=== PATIENT | female | born 1975 | race Caucasian/White ===

== ENCOUNTER 2016-04-13 13:23 | Outpatient (CLI) | payer MEDICAID, OTHER ==
[~2016-04-13] VITALS: Ht 162.6 cm; Wt 63.0 kg
[2016-04-13 13:45] VITALS: BP 108/53
[2016-04-13 14:03] LABS: BILIRUBIN,URINE NEGATIVE (NEGATIVE); KETONES,URINE NEGATIVE (NEGATIVE); LEUKOCYTE ESTERASE ,URINE NEGATIVE (NEGATIVE); NITRITE,URINE NEGATIVE (NEGATIVE); PH,URINE 6 (5-9); PROTEIN,URINE NEGATIVE (NEGATIVE); UROBILINOGEN,URINE NORMAL (NORMAL)
[2016-04-13] MEDS ORDERED: FLU TRIvalent (5 YOA+) 2016-17 (AFLURIA) 0.5 ML IM ONE (14:15)
[2016-04-13] MEDS ORDERED: NITR-65 PO (14:28)
--- NOTE | 2016-04-15 09:11 | Physician Query-Final Dx ---
SHREYAS PARDO 04/15/16 0911: Clinic Account Progress/Dx Physician Query: Please give diagnosis Date of Service Apr 13, 2016 at 13:23 AYAH CRAWFORD MD 04/16/16 0749: Clinic Account Progress/Dx DIAGNOSIS: Diagnosis false labor SHREYAS PARDO Apr 15, 2016 09:11 AYAH CRAWFORD MD Apr 16, 2016 07:49
== END 2016-04-13 14:35 | disposition home or self-care (01) ==
LOC: WSo 13:23 → LDRP 13:23 → WSo 14:35
PROVIDERS: ATTEND Obstetrics & Gynecology
DX: O47.02 False labor before 37 completed weeks of gestation, second trimester (principal); Z3A.20 20 weeks gestation of pregnancy; Z23 Encounter for immunization
CPT/HCPCS: 81000; 87088; 90471; 99214

== ENCOUNTER 2016-08-09 07:23 | Inpatient (IN) | payer BC ==
[~2016-08-09] VITALS: Ht 165.1 cm; Wt 78.5 kg
[2016-08-09] VITALS (44 sets, daily range): BP systolic 88–162; BP diastolic 49–73
[~2016-08-09 07:23] MED LIST: NITR-65 PO
[2016-08-09] MEDS ORDERED: D5 LR IV SOLUTION 1,000 ML IV SCH (07:41)
[2016-08-09] MEDS ORDERED: OXYTOCIN/NORMAL SALINE 500 ML IV SCH ×2 (07:41→07:43)
[2016-08-09] MEDS ORDERED: MEASLES,MUMPS,RUBELLA 1 EA INJ SC ONE (07:45)
[2016-08-09] MEDS ORDERED: BENZOCAINE/MENTHOL (DERMOPLAST) 56 ML CAN TP PRN (07:45)
[2016-08-09] MEDS ORDERED: TETANUS,DIPTH,PERTUSS P/F (BOOSTRIX) 0.5 ML VIAL IM ONE (07:45)
--- NOTE | 2016-08-09 07:48 | History & Physical ---
History and Physical this patient is a 40-year-old white female with an EDC of 6 817:37-1/7 weeks gestation. Been followed closely for progressive polyhydramnios. SARAH on July 09 was 330. Fundal height is markedly elevated her gestational age due to her polyhydramnios. She is having progressive dyspnea secondary to the markedly distended abdomen. She denies rupture membranes or bleeding. She is having periodic pains that she describes as severe. She had a GBS culture after 35 weeks gestation that was negative. Allergies are to codeine which causes vomiting Medications are vitamins Medical social and surgical histories are per the antepartum record HEENT exam is normal Neck is supple no lymphadenopathy no thyromegaly Abdomen is gravid soft nontender nondistended Extremities show no clubbing or cyanosis. There is no Homans sign. There is some pretibial pitting edema that is normal. Pelvic exam is pending Lab work is pending Assessment and plan term intrauterine at 37 seventh weeks gestation with symptomatic polyhydramnios and advanced maternal age. Plan is for admission on this date for Pitocin induction of labor. Anticipation is for vaginal delivery although plans in preparation replace for if needed 37-1/7 weeks gestation with marked polyhydramnios Allergies and Home Medications Allergies Coded Allergies: No Known Drug Allergies (Unverified , 04/13/16) Home Medications Nitrofurantoin Monohyd/M-Cryst 100 Mg Capsule, 1 TAB PO BID for 7 Days Prescribed by: DACIA CABRERA on 04/13/16 1428 AYAH CRAWFORD MD August 09, 2016 7:48 am
[2016-08-09 08:11] LABS: BASOPHILS % (AUTO) 0 % (0-10); EOSINOPHILS # (AUTO) 0.1 10^3/uL (0.0-0.3); EOSINOPHILS % (AUTO) 1 % (0-10); LYMPHOCYTES # (AUTO) 2.3 X 10^3 (1.0-4.0); LYMPHOCYTES % (AUTO) 20 % (12-44); MEAN CORPUSCULAR HEMOGLOBIN 28 PG (25-34); MEAN CORPUSCULAR HGB CONC 33 G/DL (32-36); MEAN CORPUSCULAR VOLUME 85 FL (80-99); MEAN PLATELET VOLUME 9.9 FL (7.4-10.4); MONOCYTES # (AUTO) 1.3 X 10^3 (0.0-1.0); MONOCYTES % (AUTO) 11 % (0-12); NEUTROPHILS % (AUTO) 68 % (42-75); PLATELET COUNT 337 10^3/uL (130-400); RED BLOOD COUNT 3.86 10^6/uL (4.35-5.85); RED CELL DISTRIBUTION WIDTH 13.4 % (10.0-14.5); WHITE BLOOD COUNT 11.7 10^3/uL (4.3-11.0)
[2016-08-09] MEDS ORDERED: LACTATED RINGERS 1,000 ML IV ONE ×2 (10:26→11:35)
[2016-08-09] MEDS ORDERED: SUFENTA 0.6MCG/ML BUPIVA 0.125 100 ML ONE (10:29)
[2016-08-09] MEDS ORDERED: BUPIVACAINE 0.25% 30 ML (SENSORCAINE) VIAL ONE (11:08)
[2016-08-09] MEDS ORDERED: EPIDURAL (SUFENTA 0.6MCG/ML BUPIVA 0.125%) 100 ML BAG EPI SCH (11:45)
[2016-08-09] MEDS ORDERED: ONDANSETRON 4 MG/2 ML (SDV) Z0FRAN IV PRN (11:45)
[2016-08-09] MEDS ORDERED: BUPIVACAINE 0.25% 30 ML (SENSORCAINE) VIAL INJ ONE (11:45)
[2016-08-09] MEDS ORDERED: NALOXONE 0.4 MG/ML 1 ML (NARCAN) VIAL IV PRN (11:45)
[2016-08-09] MEDS ORDERED: LIDOCAINE/EPI 1%-1:200,000 (XYLOCAINE) 30 ML VIAL ONE (16:42)
[2016-08-09] MEDS: KETOROLAC 30 MG/ML VIAL IV SCH ×2 (19:12→23:56)
[2016-08-09] MEDS: oxyCODONE/APAP 10/325MG (PERCOCET 10) TABLET PO PRN (23:45)
[2016-08-09] MEDS: DOCUSATE SODIUM 100 MG (COLACE) CAP PO SCH (23:58)
[2016-08-10] VITALS: BP 97/56
--- NOTE | 2016-08-10 04:27 | OPERATIVE REPORT ---
DATE OF SERVICE: 08/09/2016 DELIVERY NOTE Patient delivered term, spontaneous vaginal delivery a viable female with of 8 and 9 and 1 and 5 minutes respectively. Weight of 5 pounds 11 ounces. TIME: 1637. The infant was delivered over a midline episiotomy performed at the patient's request. She could not push the baby through the perineum. Her epidural had worn off to the point where she was quite markedly uncomfortable. She requested an episiotomy in order to accomplish the delivery expeditiously. Episiotomy was performed, baby delivered promptly with the next push. The infant was bulb suctioned on delivery of the head, again on completion of delivery. The umbilical cord was doubly clamped. Father cut the cord. The baby was passed to mom's abdomen. Cord bloods were obtained including an arterial cord blood for ABG and that is still pending. The placenta delivered spontaneously Mary. It was normal with a 3 vessel cord. The cervix, vagina, rectum, and perineum were examined and found intact except for 2 small perilabial minora skin abrasions, just small lacerations. These were hemostatic and did not require repair. The hymenal ring had torn just a bit and episiotomy was performed at that spot. The entire complex was repaired with a single suture of 3-0 Vicryl repeat in the usual manner without difficulty. Local analgesia was used for the episiotomy repair. Sponge and needle counts were correct and complete on completion of the repair. ESTIMATED BLOOD LOSS: Around 250 mL. The patient tolerated the delivery and the repair well and remained in the LDR for recovery. The baby remained with mom. Job ID: [id number] DocumentID: [id number] Dictated Date: 08/09/2016 16:58:54 Hemotherapist Date: 08/10/2016 04:26:07 Dictated By: AYAH CRAWFORD MD
[2016-08-10] MEDS ORDERED: KETOROLAC 30 MG/ML VIAL ONE (05:59)
[2016-08-10] MEDS: KETOROLAC 30 MG/ML VIAL IV SCH (06:05)
[2016-08-10 06:10] VITALS: BP 88/51
[2016-08-10 06:36] LABS: BASOPHILS % (AUTO) 0 % (0-10); EOSINOPHILS # (AUTO) 0.2 10^3/uL (0.0-0.3); EOSINOPHILS % (AUTO) 1 % (0-10); LYMPHOCYTES # (AUTO) 1.8 X 10^3 (1.0-4.0); LYMPHOCYTES % (AUTO) 13 % (12-44); MEAN CORPUSCULAR HEMOGLOBIN 27 PG (25-34); MEAN CORPUSCULAR HGB CONC 32 G/DL (32-36); MEAN CORPUSCULAR VOLUME 85 FL (80-99); MEAN PLATELET VOLUME 9.2 FL (7.4-10.4); MONOCYTES # (AUTO) 1.4 X 10^3 (0.0-1.0); MONOCYTES % (AUTO) 10 % (0-12); NEUTROPHILS # (AUTO) 10.6 X 10^3 (1.8-7.8); NEUTROPHILS % (AUTO) 76 % (42-75); PLATELET COUNT 267 10^3/uL (130-400); RED BLOOD COUNT 3.23 10^6/uL (4.35-5.85); RED CELL DISTRIBUTION WIDTH 13.2 % (10.0-14.5); WHITE BLOOD COUNT 14.1 10^3/uL (4.3-11.0)
--- NOTE | 2016-08-10 07:55 | Progress Note-Standard ---
Standard Progress Note Progress Notes/Assess & Plan Progress/Assessment & Plan this patient is without complaint. She is ablating, voiding, tolerating by mouth well, has good pain control, is requesting discharge home. She denies chest pain, denies shortness of breath, denies nausea vomiting, and denies headache. Vital Signs Date Time Temp Pulse Resp B/P (MAP) Pulse Ox O2 Delivery O2 Flow Rate FiO2 08/10/16 06:10 98.2 63 20 88/51 98 08/10/16 00:00 99.4 74 20 97/56 96 08/09/16 18:20 98.7 76 20 104/57 08/09/16 18:00 98.8 87 20 114/64 08/09/16 17:45 99.0 75 20 106/66 08/09/16 17:30 99.0 70 20 121/65 08/09/16 17:15 99.2 65 20 112/56 08/09/16 17:00 99.1 86 20 101/49 08/09/16 16:45 99.0 117 20 137/68 97 08/09/16 16:30 98.2 77 20 129/63 97 08/09/16 16:20 98.3 68 18 103/52 97 08/09/16 16:10 72 18 94/54 97 08/09/16 16:00 69 18 105/54 97 08/09/16 15:45 62 18 105/57 96 08/09/16 15:30 76 18 91/54 96 08/09/16 15:15 68 18 97/53 97 08/09/16 15:00 78 18 107/69 97 08/09/16 14:45 75 18 112/67 96 08/09/16 14:30 78 18 108/70 96 08/09/16 14:15 82 18 112/59 97 08/09/16 14:00 91 18 111/57 97 08/09/16 13:45 95 18 108/63 97 08/09/16 13:30 84 18 119/58 99 08/09/16 13:15 80 18 88/53 93 08/09/16 13:00 69 18 108/59 93 08/09/16 12:30 81 20 95/52 99 08/09/16 12:15 80 20 92/50 99 08/09/16 12:00 71 20 108/51 99 08/09/16 11:43 80 18 104/49 98 08/09/16 11:38 83 18 110/60 98 08/09/16 11:33 68 20 113/66 98 08/09/16 11:27 99.0 89 20 112/69 98 08/09/16 11:20 89 20 162/71 08/09/16 11:15 88 20 116/59 08/09/16 11:00 83 20 110/69 08/09/16 10:45 77 20 97/65 08/09/16 10:30 76 20 116/65 08/09/16 10:15 71 20 109/66 08/09/16 10:00 73 20 121/72 08/09/16 09:45 83 20 111/69 08/09/16 09:30 78 20 118/73 08/09/16 09:15 75 20 112/66 08/09/16 09:00 90 20 106/63 08/09/16 08:45 80 20 118/61 08/09/16 08:30 89 20 113/67 I & O 08/10/16 07:00 Intake Total 2500 ml Balance 2500 ml vital signs are stable. Patient is afebrile. Fundus is firm below the umbilicus and nontender. Extreme show no clubbing or cyanosis. There is no Homans sign. There is some pretibial pitting edema that is normal. Assessment and plan day number 1 status post term spontaneous vaginal delivery at 37-1/7 weeks gestation doing well. Plan is for discharge home with follow-up in clinic. If her baby is not released then she will be discharged tomorrow Final Diagnosis 37-1/7 weeks gestation T AYAH PEREA MD August 10, 2016 7:55 am
[2016-08-10] MEDS ORDERED: DOCU100C37 PO (07:58)
[2016-08-10] MEDS ORDERED: OXYC-465 PO (07:58)
[2016-08-10] MEDS ORDERED: IBUP-1780 PO (07:58)
--- NOTE | 2016-08-10 08:00 | Discharge Instructions ---
Discharge Instructions Discharge Medications New, Converted or Re-Newed RX: RX on Chart Patient Instructions Patient Instructions: as directed Return to The Hospital For: as directed Activity & Diet Discharge Diet: No Restrictions Activity as Tolerated: No Orders-Post D/C & Referrals Follow Up Appt: Call to make follow up appt. for patient in 4 weeks. Activity Per routine post vaginal delivery instructions. Diet as tolerated Patient may shower or tub bathe as desired. AYAH CRAWFORD MD August 10, 2016 8:00 am
[2016-08-10 08:15] VITALS: BP 110/56
[2016-08-10] MEDS: oxyCODONE/APAP 10/325MG (PERCOCET 10) TABLET PO PRN ×3 (08:23→21:23)
[2016-08-10] MEDS: DOCUSATE SODIUM 100 MG (COLACE) CAP PO SCH ×2 (08:23→21:23)
[2016-08-10] MEDS: IBUPROFEN 800 MG (MOTRIN) TAB PO SCH ×3 (12:29→23:50)
[2016-08-10 12:30] VITALS: BP 93/56
--- NOTE | 2016-08-10 13:37 | Anesthesia-Regional Post-Op ---
Regional Patient Condition Mental Status: Alert, Oriented x3 Circulation: Same as Pre-Op Headache: Absent Sensation: Full Recovery Motor Block: Absent Post Op Complications Complications Back Soar. Follow Up Care/Instructions Patient Instructions informed patient that having a soar back was normal. Told her if not resolving in 1 week to call the anesthesia department for an evaluation. Anesthesia/Patient Condition Patient is doing well, no complaints other than noted, stable vital signs, no apparent adverse anesthesia problems. No complications reported per nursing. MARSHALL NEWTON NUCLEAR TECHNOLOGIST August 10, 2016 13:36
[2016-08-10] MEDS ORDERED: TETANUS,DIPTH,PERTUSS P/F (BOOSTRIX) 0.5 ML VIAL IM ONE (14:20)
[2016-08-10 18:00] VITALS: BP 98/60
[2016-08-10 20:55] VITALS: BP 103/63
[2016-08-11] MEDS: oxyCODONE/APAP 10/325MG (PERCOCET 10) TABLET PO PRN ×2 (05:10→09:07)
[2016-08-11] MEDS: IBUPROFEN 800 MG (MOTRIN) TAB PO SCH (06:01)
[2016-08-11 06:02] VITALS: BP 105/70
--- NOTE | 2016-08-11 07:17 | Progress Note-Standard ---
Standard Progress Note Progress Notes/Assess & Plan Progress/Assessment & Plan this patient is without complaint. She is ablating, voiding, tolerating by mouth well, has good pain control, is requesting discharge home. She denies chest pain, denies shortness of breath, denies nausea vomiting, and denies headache. Vital Signs Date Time Temp Pulse Resp B/P (MAP) Pulse Ox O2 Delivery O2 Flow Rate FiO2 08/10/16 06:10 98.2 63 20 88/51 98 08/10/16 00:00 99.4 74 20 97/56 96 08/09/16 18:20 98.7 76 20 104/57 08/09/16 18:00 98.8 87 20 114/64 08/09/16 17:45 99.0 75 20 106/66 08/09/16 17:30 99.0 70 20 121/65 08/09/16 17:15 99.2 65 20 112/56 08/09/16 17:00 99.1 86 20 101/49 08/09/16 16:45 99.0 117 20 137/68 97 08/09/16 16:30 98.2 77 20 129/63 97 08/09/16 16:20 98.3 68 18 103/52 97 08/09/16 16:10 72 18 94/54 97 08/09/16 16:00 69 18 105/54 97 08/09/16 15:45 62 18 105/57 96 08/09/16 15:30 76 18 91/54 96 08/09/16 15:15 68 18 97/53 97 08/09/16 15:00 78 18 107/69 97 08/09/16 14:45 75 18 112/67 96 08/09/16 14:30 78 18 108/70 96 08/09/16 14:15 82 18 112/59 97 08/09/16 14:00 91 18 111/57 97 08/09/16 13:45 95 18 108/63 97 08/09/16 13:30 84 18 119/58 99 08/09/16 13:15 80 18 88/53 93 08/09/16 13:00 69 18 108/59 93 08/09/16 12:30 81 20 95/52 99 08/09/16 12:15 80 20 92/50 99 08/09/16 12:00 71 20 108/51 99 08/09/16 11:43 80 18 104/49 98 08/09/16 11:38 83 18 110/60 98 08/09/16 11:33 68 20 113/66 98 08/09/16 11:27 99.0 89 20 112/69 98 08/09/16 11:20 89 20 162/71 08/09/16 11:15 88 20 116/59 08/09/16 11:00 83 20 110/69 08/09/16 10:45 77 20 97/65 08/09/16 10:30 76 20 116/65 08/09/16 10:15 71 20 109/66 08/09/16 10:00 73 20 121/72 08/09/16 09:45 83 20 111/69 08/09/16 09:30 78 20 118/73 08/09/16 09:15 75 20 112/66 08/09/16 09:00 90 20 106/63 08/09/16 08:45 80 20 118/61 08/09/16 08:30 89 20 113/67 I & O 08/10/16 07:00 Intake Total 2500 ml Balance 2500 ml vital signs are stable. Patient is afebrile. Fundus is firm below the umbilicus and nontender. Extreme show no clubbing or cyanosis. There is no Homans sign. There is some pretibial pitting edema that is normal. Assessment and plan day number 1 status post term spontaneous vaginal delivery at 37-1/7 weeks gestation doing well. Plan is for discharge home with follow-up in clinic. If her baby is not released then she will be discharged tomorrow August 11, 2016 Patient is without complaint. She is ambulating, voiding, tolerating fairly well, has good pain control, and is requesting discharge home. Vital Signs Date Time Temp Pulse Resp B/P (MAP) Pulse Ox O2 Delivery O2 Flow Rate FiO2 08/11/16 06:02 98.7 79 20 105/70 08/10/16 20:55 97.7 87 20 103/63 99 08/10/16 18:00 97.8 68 20 98/60 99 08/10/16 12:30 97.8 70 18 93/56 98 08/10/16 08:15 98.3 93 18 110/56 97 vital signs are stable. Patient is afebrile. Fundus is firm below the umbilicus and nontender. Extremities show no clubbing cyanosis. There is no Homans sign. There is some pretibial pitting edema that is normal. Assessment and plan post day 2 status post term spontaneous vaginal delivery at 37 weeks and 1 day doing well. Plan is for discharge home with follow-up in clinic Final Diagnosis 37-1/7 weeks gestation vaginal delivery AAYH CRAWFORD MD August 11, 2016 7:17 am
[2016-08-11 09:00] VITALS: BP 105/67
[2016-08-11] MEDS: DOCUSATE SODIUM 100 MG (COLACE) CAP PO SCH (09:04)
[2016-08-11 12:20] VITALS: BP 105/67
== END 2016-08-11 12:20 | disposition home or self-care (01) | DRG 775 ==
LOC: LDRP 07:23
PROVIDERS: ADMIT Obstetrics & Gynecology; ATTEND Obstetrics & Gynecology
PROC: 0W8NXZZ Division of Female Perineum, External Approach (ICD-10-PCS; principal; 2016-08-09)
PROC: 10E0XZZ Delivery of Products of Conception, External Approach (ICD-10-PCS; 2016-08-09)
PROC: 3E033VJ Introduction of Other Hormone into Peripheral Vein, Percutaneous Approach (ICD-10-PCS; 2016-08-09)
DX: O40.3XX0 Polyhydramnios, third trimester, not applicable or unspecified (principal); O09.523 Supervision of elderly multigravida, third trimester; Z3A.37 37 weeks gestation of pregnancy; Z37.0 Single live birth; Z23 Encounter for immunization
CPT/HCPCS: 36415; 85025; 86850; 86900; 86901; 90715

== ENCOUNTER → 2017-05-23 | Outpatient (CLI) | payer BC ==
[~2017-05-23] MED LIST changes: +DOCU100C37 PO; +IBUP-1780 PO; +OXYC-465 PO
--- NOTE | 2017-05-23 14:57 | Diagnostic Imaging Report ---
INDICATION: Routine screening. COMPARISON: 10/27/2013 and 04/19/2013. TECHNIQUE: Screening digital mammography was performed bilaterally with a Computer Aided Detection (CAD) system. FINDINGS: Both breasts are heterogeneously dense limiting the sensitivity of mammography. There is a biopsy clip in the upper outer aspect of the right breast. No dominant mass or malignant appearing microcalcifications are seen. The axillae are unremarkable. IMPRESSION: No mammographic features suspicious for malignancy are identified. ACR BI-RADS Category 2: Benign findings. Result letter will be mailed to the patient. Note: At least 10% of breast cancer is not imaged by mammography. Dictated by: Dictated on workstation # [id number]
== END ==
LOC: RAD 09:27
PROVIDERS: ATTEND Obstetrics & Gynecology
DX: Z12.31 Encounter for screening mammogram for malignant neoplasm of breast (principal)
CPT/HCPCS: 77067

== ENCOUNTER → 2018-06-19 | Outpatient (CLI) | payer BC ==
--- NOTE | 2018-06-19 21:08 | Diagnostic Imaging Report ---
INDICATION: Routine screening. COMPARISON: Prior mammogram from 05/23/2017 and 04/19/2013. EXAMINATION: 2D and 3D bilateral screening mammography was performed with CAD. The current study was also evaluated with a Computer Aided Detection (CAD) system. FINDINGS: Both breasts show marked parenchymal density, limiting the sensitivity of mammography. There are benign calcifications, bilaterally. Circumscribed nodule in the upper right breast appears stable. No new mass or malignant appearing microcalcifications are seen. The axillae are unremarkable. IMPRESSION: No mammographic features suspicious for malignancy are identified. ACR BI-RADS Category 2: Benign findings. Result letter will be mailed to the patient. Note: At least 10% of breast cancer is not imaged by mammography. Dictated on workstation # [id number]
== END ==
LOC: RAD 11:39
PROVIDERS: ATTEND Obstetrics & Gynecology
DX: Z12.31 Encounter for screening mammogram for malignant neoplasm of breast (principal)
CPT/HCPCS: 77067

== ENCOUNTER 2020-11-17 05:30 | Emergency (ER) | payer BC ==
[~2020-11-17] VITALS: Ht 165.1 cm; Wt 59.0 kg
[~2020-11-17 05:30] MED LIST changes: -OXYC-465 PO; +OXYC-556 PO
[2020-11-17 06:27] LABS: BASOPHILS % (AUTO) 0 % (0-10); EOSINOPHILS % (AUTO) 1 % (0-10); HEMATOCRIT 40 % (35-52); HEMOGLOBIN 12.9 g/dL (11.5-16.0); LYMPHOCYTES # (AUTO) 1.1 10^3/uL (1.0-4.0); LYMPHOCYTES % (AUTO) 30 % (12-44); MEAN CORPUSCULAR HEMOGLOBIN 27 pg (25-34); MEAN CORPUSCULAR HGB CONC 32 g/dL (32-36); MEAN CORPUSCULAR VOLUME 84 fL (80-99); MEAN PLATELET VOLUME 9.3 fL (9.0-12.2); MONOCYTES # (AUTO) 0.4 10^3/uL (0.0-1.0); MONOCYTES % (AUTO) 11 % (0-12); NEUTROPHILS # (AUTO) 2.1 10^3/uL (1.8-7.8); NEUTROPHILS % (AUTO) 58 % (42-75); PLATELET COUNT 254 10^3/uL (130-400); WHITE BLOOD COUNT 3.6 10^3/uL (4.3-11.0)
[2020-11-17 06:33] LABS: ALBUMIN 3.8 GM/DL (3.2-4.5); POTASSIUM 3.2 MMOL/L (3.6-5.0)
[2020-11-17 06:34] LABS: CALCIUM 8.6 MG/DL (8.5-10.1)
[2020-11-17 06:35] LABS: TOTAL PROTEIN 6.7 GM/DL (6.4-8.2)
[2020-11-17 06:37] LABS: BILIRUBIN,TOTAL 0.2 MG/DL (0.1-1.0)
[2020-11-17 06:39] LABS: CREATININE SERUM 0.71 MG/DL (0.60-1.30)
--- NOTE | 2020-11-17 06:42 | ED General ---
General Chief Complaint: General Problems/Pain Stated Complaint: ABD PAIN Nursing Triage Note: PT AMBULATS TO ROOM #5 W/CC INABILITY TO SLEEP THE LAST 2 NIGHTS D/T PAIN TO BILAT RIBS RADIATING TO SHOULDERS. PT REPORTS PAIN DECREASES DURING THE DAY AND IS MADE WORSE WHEN LAYING DOWN AT NIGHT. PT REPORTS DIARRHEA THROUGHOUT THE DAY ON 11/16/20 ACCOMPANIED BY INTERMITTENT NAUSEA. PT REPORTS FEVER THROUGHOUT THE NIGHT FOR THE LAST 2 NIGHTS. PT REPORTS SHE WAS SEEN AT [facility] ON 11/16/20 WHERE SHE WAS DX WITH "GI VIRUS." Source of Information: Patient Exam Limitations: No Limitations History of Present Illness Date Seen by Provider: Nov 17, 2020 Time Seen by Provider: 06:09 Allergies and Home Medications Allergies Coded Allergies: No Known Drug Allergies (Unverified , 04/13/16) Home Medications Docusate Sodium 100 Mg Capsule, 100 MG PO BID Prescribed by: AYAH SALVADOR on 08/10/16 0758 Ibuprofen 800 Mg Tablet, 800 MG PO Q6H Prescribed by: AYAH SALVADOR on 08/10/16 0758 Nitrofurantoin Monohyd/M-Cryst 100 Mg Capsule, 1 TAB PO BID Prescribed by: DACIA CABRERA on 04/13/16 1428 Ondansetron 4 Mg Tab.rapdis, 4 MG SL Q4H PRN for NAUSEA/VOMITING Prescribed by: GUILLERMO MCNAMARA on 11/17/20 0905 Oxycodone HCl/Acetaminophen 1 Each Tablet, 1-2 TAB PO Q4H PRN for PAIN-MODERATE Prescribed by: AYAH SALVADOR on 08/10/16 0758 Tramadol HCl 50 Mg Tablet, 50 MG PO Q6H PRN for PAIN-BREAKTHROUGH Prescribed by: GUILLERMO MCNAMARA on 11/17/20 0906 Past Zidyctd-Nnvwbh-Fbbecy Hx Patient Social History Tobacco Use?: Yes Tobacco type used: Cigarettes Smoking Status: Current Everyday Smoker Substance use?: No Alcohol Use?: No Immunizations Up To Date PED Vaccines UTD: Yes First/Initial COVID19 Vaccinat: NONE Seasonal Allergies Seasonal Allergies: No Past Medical History Surgeries: Yes (LEEP) Respiratory: No Cardiac: No Neurological: No Genitourinary: No Gastrointestinal: No Musculoskeletal: No Endocrine: No HEENT: No Cancer: No Psychosocial: No Integumentary: No Blood Disorders: No Adverse Reaction/Blood Tranf: No Family Medical History Cardiovascular disease 19 FATHER (GRANDFATHER) Parkinson's disease 19 MOTHER (GRANDMOTHER) Physical Exam Vital Signs Vital Signs - First Documented 11/17/20 05:47 Temp 35.8 Pulse 101 Resp 18 B/P (MAP) 119/81 (94) Pulse Ox 98 O2 Delivery Room Air Capillary Refill : Less Than 3 Seconds Height, Weight, BMI Height: 5'5.00" Weight: 173lbs. 0.0oz. [id number]; 21.00 BMI Method: Progress/Results/Core Measures Suspected Sepsis SIRS Temperature: Pulse: 101 Respiratory Rate: 18 Laboratory Tests 11/17/20 05:50: White Blood Count 3.6L Blood Pressure 119 /81 Mean: 94 Laboratory Tests 11/17/20 05:50: Creatinine 0.71, Platelet Count 254, Total Bilirubin 0.2 Results/Orders Lab Results Laboratory Tests Test 11/17/20 05:50 11/17/20 07:20 Range/Units White Blood Count 3.6 L 4.3-11.0 10^3/uL Red Blood Count 4.77 3.80-5.11 10^6/uL Hemoglobin 12.9 11.5-16.0 g/dL Hematocrit 40 35-52 % Mean Corpuscular Volume 84 80-99 fL Mean Corpuscular Hemoglobin 27 25-34 pg Mean Corpuscular Hemoglobin Concent 32 32-36 g/dL Red Cell Distribution Width 15.9 H 10.0-14.5 % Platelet Count 254 130-400 10^3/uL Mean Platelet Volume 9.3 9.0-12.2 fL Immature Granulocyte % (Auto) 0 % Neutrophils (%) (Auto) 58 42-75 % Lymphocytes (%) (Auto) 30 12-44 % Monocytes (%) (Auto) 11 0-12 % Eosinophils (%) (Auto) 1 0-10 % Basophils (%) (Auto) 0 0-10 % Neutrophils # (Auto) 2.1 1.8-7.8 10^3/uL Lymphocytes # (Auto) 1.1 1.0-4.0 10^3/uL Monocytes # (Auto) 0.4 0.0-1.0 10^3/uL Eosinophils # (Auto) 0.0 0.0-0.3 10^3/uL Basophils # (Auto) 0.0 0.0-0.1 10^3/uL Immature Granulocyte # (Auto) 0.0 0.0-0.1 10^3/uL Sodium Level 134 L 135-145 MMOL/L Potassium Level 3.2 L 3.6-5.0 MMOL/L Chloride Level 100 98-107 MMOL/L Carbon Dioxide Level 26 21-32 MMOL/L Anion Gap 8 5-14 MMOL/L Blood Urea Nitrogen 7 7-18 MG/DL Creatinine 0.71 0.60-1.30 MG/DL Estimat Glomerular Filtration Rate 88 BUN/Creatinine Ratio 10 Glucose Level 103 70-105 MG/DL Calcium Level 8.6 8.5-10.1 MG/DL Corrected Calcium 8.8 8.5-10.1 MG/DL Total Bilirubin 0.2 0.1-1.0 MG/DL Aspartate Amino Transf (AST/SGOT) 51 H 5-34 U/L Alanine Aminotransferase (ALT/SGPT) 56 H 0-55 U/L Alkaline Phosphatase 90 40-136 U/L C-Reactive Protein High Sensitivity 2.78 H 0.00-0.50 MG/DL Total Protein 6.7 6.4-8.2 GM/DL Albumin 3.8 3.2-4.5 GM/DL Lipase 17 8-78 U/L Serum Test, Qualitative NEGATIVE NEGATIVE Influenza Type A (RT-PCR) Not Detected Not Detecte Influenza Type B (RT-PCR) Not Detected Not Detecte SARS-CoV-2 RNA (RT-PCR) Not Detected Not Detecte Urine Color YELLOW Urine Clarity SL CLOUDY Urine pH 6.0 5-9 Urine Specific [place] 1.020 1.016-1.022 Urine Protein NEGATIVE NEGATIVE Urine Glucose (UA) NEGATIVE NEGATIVE Urine Ketones 1+ H NEGATIVE Urine Nitrite NEGATIVE NEGATIVE Urine Bilirubin NEGATIVE NEGATIVE Urine Urobilinogen 0.2 < = 1.0 MG/DL Urine Leukocyte Esterase 1+ H NEGATIVE Urine RBC (Auto) TRACE-I NEGATIVE Urine RBC 0-2 /HPF Urine WBC 2-5 /HPF Urine Squamous Epithelial Cells 5-10 /HPF Urine Crystals NONE /LPF Urine Bacteria FEW H /HPF Urine Casts NONE /LPF Urine Mucus NEGATIVE /LPF Urine Culture Indicated NO My Orders Orders - GUILLERMO AGUILA MD Cbc With Automated Diff (11/17/20 06:09) Comprehensive Metabolic Panel (11/17/20 06:09) Hs C Reactive Protein (11/17/20 06:09) Lipase (11/17/20 06:09) Ua Culture If Indicated (11/17/20 06:09) Ed Iv/Invasive Line Start (11/17/20 06:09) Covid 19 Inhouse Test (11/17/20 06:09) Influenza A And B By Pcr (11/17/20 06:09) Hcg,Qualitative Serum (11/17/20 06:42) Ondansetron Injection (Zofran Injectio (11/17/20 07:15) Fentanyl Inj (Sublimaze Injection) (11/17/20 07:15) Lactated Ringers (Lr 1000 Ml Iv Solution (11/17/20 07:15) Us Gallbladder [id number] (11/17/20 07:06) Ct Abdomen/Pelvis W (11/17/20 09:24) Iohexol Injection (Omnipaque 350 Mg/Ml 1 (11/17/20 09:45) Received Contrast (Hold Metformin- Contr (11/17/20 09:45) Sodium Chloride Flush (Catheter Flush Sy (11/17/20 09:45) Ns (Ivpb) (Sodium Chloride 0.9% Ivpb Bag (11/17/20 09:45) Tramadol Tablet (Ultram Tablet) (11/17/20 10:45) Medications Given in ED Current Medications Medications Dose Ordered Sig/Shanita Route Start Time Stop Time Status Last Admin Dose Admin Fentanyl Citrate 50 mcg ONCE ONCE IVP 11/17/20 07:15 11/17/20 07:16 DC 11/17/20 07:21 50 MCG Iohexol 100 ml ONCE ONCE IV 11/17/20 09:45 11/17/20 09:55 DC 11/17/20 09:52 74 ML Lactated Ringer's 1,000 ml @ 0 mls/hr Q0M ONCE IV 11/17/20 07:15 11/17/20 07:16 DC 11/17/20 07:21 1,000 MLS/HR Ondansetron HCl 8 mg ONCE ONCE IVP 11/17/20 07:15 11/17/20 07:16 DC 11/17/20 07:21 8 MG Sodium Chloride 10 ml NEEDED PRN IV 11/17/20 09:45 11/17/20 09:52 10 ML Sodium Chloride 100 ml ONCE ONCE IV 11/17/20 09:45 11/17/20 09:55 DC 11/17/20 09:52 80 ML Vital Signs/I&O 11/17/20 05:47 Temp 35.8 Pulse 101 Resp 18 B/P (MAP) 119/81 (94) Pulse Ox 98 O2 Delivery Room Air Capillary Refill : Less Than 3 Seconds Blood Pressure Mean: 94 Progress Note #1: Time: 09:00 Progress Note Labs and gallbladder ultrasound were unremarkable. Patient was treated with fentanyl which caused dysphoria but did not improve her pain much. Zofran was given for nausea. A liter of IV fluid was administered. We discussed options for further evaluation including following up with her primary care provider and discussing further studies such as hepatobiliary scan versus CT scan in the ER. Risks and benefits were reviewed. Patient elects to return home and follow-up with her primary care provider. Zofran and Ultram were prescribed for symptom management. See discharge instructions. Progress Note #2: Time: 09:25 Progress Note Nursing staff entered patient's room to discharge. Patient has now decided she would like to proceed with CT scan. CT was ordered. Progress Note #3: Time: 10:[address] scan showed no definite abnormalities that would explain her pain. She did have some liver heterogenicity possibly related to fatty liver disease. See CT report for further explanation. Transaminases were slightly elevated and should be repeated at a later date. Patient denies any risk factors for hepatitis C. Although not commented on by the radiologist, her right colon did appear fairly full of stool. We discussed pushing clear liquids and using a stool softener or laxative today to help evacuate her colon. I advised her against harsh laxatives as this may cause pain and cramping. See discharge instructions for further discussion. Ultram was given prior to discharge for pain. Diagnostic Imaging Diagonstic Imaging: Ultrasound Plain Films/CT/US/NM/MRI: abdomen Comments NAME: CRISTY BROWN MED REC#: [id number] PT STATUS: REG ER : 1975 PHYSICIAN: GUILLERMO AGUILA MD ADMIT DATE: 11/17/20/ER Signed Date of Exam:11/17/20 US GALLBLADDER [id number] PROCEDURE: US Gallbladder. TECHNIQUE: Multiple real-time grayscale images were obtained over the right upper quadrant in various projections. INDICATION: Right upper quadrant pain with nausea vomiting Liver parenchyma is unremarkable. Portal vein is patent with hepatopetal flow. Gallbladder is clear with no stones or wall thickening. Common duct is not dilated. The pancreas appears normal. Aorta and IVC appear normal. Right kidney measures 9.5 cm in length and appears normal. There is no ascites. IMPRESSION: Negative gallbladder sonogram Dictated by: Dictated on workstation # [id number] Dict: 11/17/20828 Trans: 11/17/20832 TCB [id number] Interpreted by: TESSA JJ MD Electronically signed by: TESSA JJ MD 11/17/20832 Reviewed: Reviewed by Me Diagonstic Imaging: CT Plain Films/CT/US/NM/MRI: abdomen, pelvis Comments CT abdomen pelvis viewed by me and report reviewed. See report below: NAME: CRISTY BROWN [facility] REC#: [id number] PT STATUS: REG ER : 1975 PHYSICIAN: GUILLERMO AGUILA MD ADMIT DATE: 11/17/20/ER Signed Date of Exam:11/17/20 US GALLBLADDER [id number] PROCEDURE: US Gallbladder. TECHNIQUE: Multiple real-time grayscale images were obtained over the right upper quadrant in various projections. INDICATION: Right upper quadrant pain with nausea vomiting Liver parenchyma is unremarkable. Portal vein is patent with hepatopetal flow. Gallbladder is clear with no stones or wall thickening. Common duct is not dilated. The pancreas appears normal. Aorta and IVC appear normal. Right kidney measures 9.5 cm in length and appears normal. There is no ascites. IMPRESSION: Negative gallbladder sonogram Dictated by: Dictated on workstation # [id number] Dict: 11/17/20828 Trans: 11/17/20832 TCB [id number] Interpreted by: TESSA JJ MD Electronically signed by: TESSA JJ MD 11/17/20832 Departure Impression Primary Impression: Right upper quadrant pain Additional Impressions: Nausea Hypokalemia Abnormal CT of liver Disposition: 01 HOME, SELF-CARE Condition: Improved Departure-Patient Inst. Decision time for Depature: 09:00 Referrals: HIEU CARLSON (PCP) Primary Care Physician [facility] (Family) Primary Care Physician Patient Instructions: Severe Abdominal Pain Add. Discharge Instructions: Drink plenty of clear liquids and adhere to a clear liquid diet today. If you are feeling better tomorrow, gradually advance your diet with small quantities of bland food as tolerated. Eat a diet low in fats, pieces, and oils as these may aggravate the gallbladder. Follow-up with your primary care provider as soon as possible for further evaluation. Your primary care provider may consider ordering additional outpatient studies including hepatobiliary scan. Please discuss options with your primary care provider. In addition you should discuss the CT scan results as there are some changes to your liver that could represent fatty liver disease or other pathologies. Your liver markers were slightly elevated and your blood work and should be checked at some point again in the next few weeks. Use the Zofran as prescribed for nausea and vomiting. Use Tylenol (acetaminophen disease up to 1000 mg every 6 hours as needed for primary pain control. Add Ultram (tramadol) as prescribed for breakthrough pain. Call with questions or concerns. Return to care if you have worsening symptoms. All discharge instructions reviewed with patient and/or family. Voiced understanding. Scripts Tramadol HCl (Ultram) 50 Mg Tablet 50 MG PO Q6H PRN for PAIN-BREAKTHROUGH, #8 TAB Prov: GUILLERMO AGUILA MD 11/17/20 Ondansetron (Ondansetron Odt) 4 Mg Tab.rapdis 4 MG SL Q4H PRN for NAUSEA/VOMITING, #10 TAB Prov: GUILLERMO AGUILA MD 11/17/20 Copy Copies To 1: CHARLES NGUYEN JOSHUA T MD Nov 17, 2020 06:42
[2020-11-17] MEDS ORDERED: ONDANSETRON 4 MG/2 ML (SDV) Z0FRAN IVP ONE (07:15)
[2020-11-17] MEDS ORDERED: fentaNYL INJ 100 MCG/2 ML AMP IVP ONE (07:15)
[2020-11-17] MEDS ORDERED: LACTATED RINGERS 1,000 ML IV ONE (07:15)
[2020-11-17 07:29] LABS: BILIRUBIN,URINE NEGATIVE (NEGATIVE); CLARITY,URINE SL CLOUDY; COLOR,URINE YELLOW; GLUCOSE, URINE (UA) NEGATIVE (NEGATIVE); KETONES,URINE 1+ (NEGATIVE); LEUKOCYTE ESTERASE ,URINE 1+ (NEGATIVE); NITRITE,URINE NEGATIVE (NEGATIVE); PROTEIN,URINE NEGATIVE (NEGATIVE)
[2020-11-17 07:46] LABS: BACTERIA,URINE FEW /HPF; RBC,URINE 0-2 /HPF
--- NOTE | 2020-11-17 08:34 | Diagnostic Imaging Report ---
PROCEDURE: US Gallbladder. TECHNIQUE: Multiple real-time grayscale images were obtained over the right upper quadrant in various projections. INDICATION: Right upper quadrant pain with nausea vomiting Liver parenchyma is unremarkable. Portal vein is patent with hepatopetal flow. Gallbladder is clear with no stones or wall thickening. Common duct is not dilated. The pancreas appears normal. Aorta and IVC appear normal. Right kidney measures 9.5 cm in length and appears normal. There is no ascites. IMPRESSION: Negative gallbladder sonogram Dictated by: Dictated on workstation # [id number]
[2020-11-17] MEDS ORDERED: ONDA4TAB11 SL (09:05)
[2020-11-17] MEDS ORDERED: TRAM-42 PO (09:05)
[2020-11-17] MEDS ORDERED: IOHEXOL 350 MG/ML 100 ML (OMNIPAQUE 350) VIAL IV ONE (09:45)
[2020-11-17] MEDS ORDERED: NS 100 ML (IVPB) BAG IV ONE (09:45)
[2020-11-17] MEDS ORDERED: HOLD METFORMIN - RECEIVED CONTRAST 20 ML VIAL IV SCH (09:45)
[2020-11-17] MEDS ORDERED: CATHETER FLUSH 10 ML SYR IV PRN (09:45)
--- NOTE | 2020-11-17 10:07 | Diagnostic Imaging Report ---
PROCEDURE: CT abdomen and pelvis with contrast. TECHNIQUE: Multiple contiguous axial images were obtained through the abdomen and pelvis after administration of intravenous contrast. Auto Exposure Controls were utilized during the CT exam to meet ALARA standards for radiation dose reduction. All CT scans use one or more of the following dose optimizing techniques: automated exposure control, MA and/or KvP adjustment based on patient size and exam type or iterative reconstruction. INDICATION: Abdominal pain with nausea and fever. COMPARISON: None. FINDINGS: There is mild low density throughout the liver which may be due to fatty infiltration. Occasional tiny lucencies in both lobes of liver may represent cysts, although these are too small to fully characterize. There is no evidence of gallbladder, pancreatic, adrenal gland, or splenic abnormality. Kidneys are unremarkable. There is no evidence of renal mass or hydronephrosis. No appendiceal inflammation is identified. There is heterogeneous enlargement of the uterus with occasional myometrial calcifications suggesting fibroid change. Unenhanced urinary bladder is unremarkable. IMPRESSION: No acute abnormalities identified, however there is heterogeneous appearance of the liver which may be due to fatty infiltration. Component of hepatitis or developing cirrhosis cannot be excluded and clinical correlation would be of value. Dictated by: Dictated on workstation # [id number]
[2020-11-17 10:40] VITALS: BP 124/83
== END 2020-11-17 10:39 | disposition home or self-care (01) ==
LOC: EDUNIT# 05:30 → ER 05:36
DX: R10.11 Right upper quadrant pain (principal); R11.2 Nausea with vomiting, unspecified; E87.6 Hypokalemia; R93.2 Abnormal findings on diagnostic imaging of liver and biliary tract; F17.210 Nicotine dependence, cigarettes, uncomplicated; Z20.822 Contact with and (suspected) exposure to COVID-19
CPT/HCPCS: 36415; 74177; 76705; 80053; 81000; 83690; 84703; 85025; 86141; 87636

== ENCOUNTER 2022-02-03 15:02 | Emergency (ER) | payer BC ==
[~2022-02-03 15:02] MED LIST changes: +ONDA4TAB11 SL; +TRAM-42 PO
--- NOTE | 2022-02-03 15:05 | ED Upper Extremity ---
General Stated Complaint: LEFT WRIST INJURY Exam Limitations: no limitations History of Present Illness Date Seen by Provider: Feb 03, 2022 Pain/Injury Location: left wrist Method of Injury: fell Modifying Factors: Worse With Movement Allergies and Home Medications Allergies Coded Allergies: No Known Drug Allergies (Unverified , 04/13/16) Patient Home Medication List Docusate Sodium (Docusate Sodium) 100 Mg Capsule, 100 MG PO BID Prescribed by: AYAH SALVADOR on 08/10/16 0758 Ibuprofen (Ibuprofen) 800 Mg Tablet, 800 MG PO Q6H Prescribed by: AYAH SALVADOR on 08/10/16 0758 Nitrofurantoin Monohyd/M-Cryst (Macrobid 100 mg Capsule) 100 Mg Capsule, 1 TAB PO BID Prescribed by: DACIA CABRERA on 04/13/16 1428 Ondansetron (Ondansetron Odt) 4 Mg Tab.rapdis, 4 MG SL Q4H PRN for NAUSEA/VOMITING Prescribed by: GUILLERMO MCNAMARA on 11/17/20 0905 Oxycodone HCl/Acetaminophen (Oxycodone-Acetaminophen 10-325) 1 Each Tablet, 1-2 TAB PO Q4H PRN for PAIN-MODERATE Prescribed by: AYAH SALVADOR on 08/10/16 0758 Tramadol HCl (Ultram) 50 Mg Tablet, 50 MG PO Q6H PRN for PAIN-BREAKTHROUGH Prescribed by: GUILLERMO MCNAMARA on 11/17/20 0906 Past Dsygkao-Uuzdfu-Jeycnn Hx Immunizations Up To Date PED Vaccines UTD: Yes First/Initial COVID19 Vaccinat: NONE Seasonal Allergies Seasonal Allergies: No Past Medical History Surgeries: Yes (LEEP) Respiratory: No Cardiac: No Neurological: No Genitourinary: No Gastrointestinal: No Musculoskeletal: No Endocrine: No HEENT: No Cancer: No Psychosocial: No Integumentary: No Blood Disorders: No Adverse Reaction/Blood Tranf: No Physical Exam Vital Signs Capillary Refill : Height, Weight, BMI Height: 5'5.00" Weight: 173lbs. 0.0oz. [id number]; 21.00 BMI Method: Departure Departure-Patient Inst. Referrals: [facility] [place] (PCP/Family) Primary Care Physician KOLBY JOSEPH APRN Feb 03, 2022 15:05
--- NOTE | 2022-02-03 15:13 | ED Upper Extremity ---
General Chief Complaint: Upper Extremity Stated Complaint: LEFT WRIST INJURY Nursing Triage Note: pt to ed with c/o left forearm pain, [place] the skating [place] and fell and broke her left arm Source: patient Exam Limitations: no limitations History of Present Illness Date Seen by Provider: Feb 03, 2022 Time Seen by Provider: 15:00 Initial Comments 46-year-old female who is otherwise healthy presents for left forearm injury. S he was rollerskating and fell onto the carpet. She has an obvious deformity of the left forearm. It is in a splint upon arrival. She denies any other injuries. She did not hit her head or get knocked out. She is not on blood thinning medications. Allergies and Home Medications Allergies Coded Allergies: No Known Drug Allergies (Unverified , 04/13/16) Patient Home Medication List Home Medication List Reviewed: Yes Docusate Sodium (Docusate Sodium) 100 Mg Capsule, 100 MG PO BID Prescribed by: AYAH SALVADOR on 08/10/16 0758 Hydrocodone Bit/Acetaminophen (HYDROcodone/APAP 5 MG/325 MG TAB) 1 Tab Tab, 1 TAB PO Q6H Prescribed by: AGAPITO CODY MD on 02/03/22 1556 Ibuprofen (Ibuprofen) 800 Mg Tablet, 800 MG PO Q6H Prescribed by: AYAH SALVADOR on 08/10/16 0758 Nitrofurantoin Monohyd/M-Cryst (Macrobid 100 mg Capsule) 100 Mg Capsule, 1 TAB PO BID Prescribed by: DACIA CABRERA on 04/13/16 1428 Ondansetron (Ondansetron Odt) 4 Mg Tab.rapdis, 4 MG SL Q4H PRN for NAUSEA/VOMITING Prescribed by: GUILLERMO MCNAMARA on 11/17/20 0905 Oxycodone HCl/Acetaminophen (Oxycodone-Acetaminophen 10-325) 1 Each Tablet, 1-2 TAB PO Q4H PRN for PAIN-MODERATE Prescribed by: AYAH SALVADOR on 08/10/16 0758 Tramadol HCl (Ultram) 50 Mg Tablet, 50 MG PO Q6H PRN for PAIN-BREAKTHROUGH Prescribed by: GUILLERMO MCNAMARA on 11/17/20 0906 Review of Systems Constitutional: no symptoms reported EENTM: no symptoms reported Respiratory: no symptoms reported Cardiovascular: no symptoms reported Gastrointestinal: no symptoms reported Genitourinary: no symptoms reported Musculoskeletal: other (Left forearm, wrist pain) Skin: no symptoms reported Psychiatric/Neurological: No Symptoms Reported Past Yjklrzn-Yhqfrm-Ylmnbi Hx Patient Social History Tobacco Use?: No Use of E-Cig and/or Vaping dev: No Substance use?: No Alcohol Use?: No Immunizations Up To Date PED Vaccines UTD: Yes First/Initial COVID19 Vaccinat: NONE Seasonal Allergies Seasonal Allergies: No Past Medical History Surgeries: Yes (LEEP) Respiratory: No Cardiac: No Neurological: No Genitourinary: No Gastrointestinal: No Musculoskeletal: No Endocrine: No HEENT: No Cancer: No Psychosocial: No Integumentary: No Blood Disorders: No Adverse Reaction/Blood Tranf: No Family Medical History Reviewed Nursing Family Hx Cardiovascular disease 19 FATHER (GRANDFATHER) Parkinson's disease 19 MOTHER (GRANDMOTHER) No Pertinent Family Hx Physical Exam Vital Signs Vital Signs - First Documented 02/03/22 02/03/22 15:06 15:37 Temp 36.4 Pulse 85 Resp 22 B/P (MAP) 110/68 (82) Pulse Ox 93 O2 Delivery Nasal Cannula O2 Flow Rate 2.00 Capillary Refill : Height, Weight, BMI Height: 5'5.00" Weight: 173lbs. 0.0oz. 78.026960uw; 21.00 BMI Method: General Appearance: WD/WN, no apparent distress HEENT: normal ENT inspection, pharynx normal Neck: non-tender, full range of motion, supple, normal inspection Cardiovascular: regular rate, rhythm, no edema, no gallop, no JVD, no murmur Respiratory: chest non-tender, lungs clear, normal breath sounds, no respiratory distress, no accessory muscle use Gastrointestinal: normal bowel sounds, non tender, soft, no organomegaly Shoulder: normal inspection, non-tender, no evidence of injury, normal ROM Elbow/Forearm: deformity (Like repeat bone forearm fracture just proximal to the wrist on the left. Neurovascular motor and sensory intact. No elbow tenderness. No shoulder tenderness.) Wrist: Yes pain (As described above) Hand: normal inspection, non-tender, no evidence of injury Neurologic/Psychiatric: alert, normal mood/affect, oriented x 3 Skin: normal color, warm/dry Lymphatic: no adenopathy Procedures/Interventions Patient Education: Explained Benefits, Explained Risks, Pt. Ack. Understanding Agreement on procedure with pt: Yes Breath Sounds per Auscultation: Clear Total Time spent in CS 12 Splinting and Joint Reduction : Location: L wrist Pre-Proc Neuro Vasc Exam: normal Post-Proc Neuro Vasc Exam: normal Reduction Attempts: 1 post joint reduction film: joint reduced Conrado wrap: Yes Splints: Colles Wrist (sugar tong) Hand-Made Type: fiberglass Splint Application: Long Arm Progress/Results/Core Measures Results/Orders My Orders Orders - AGAPITO CODY DO Fentanyl Inj (Sublimaze Injection) (02/03/22 15:15) Forearm, Left, 2 Views (02/03/22 15:08) Propofol Injection (Diprivan Injection) (02/03/22 15:15) Iv/Invasive Line Insertion .IV INSERT (02/03/22 15:23) Ns Iv 1000 Ml (Sodium Chloride 0.9%) (02/03/22 15:37) Forearm, Left, 2 Views (02/03/22 15:50) Propofol Injection (Diprivan Injection) (02/03/22 16:00) Medications Given in ED Current Medications Medications Dose Ordered Sig/Shanita Route Start Time Stop Time Status Last Admin Dose Admin Fentanyl Citrate 50 mcg ONCE ONCE IVP 02/03/22 15:15 02/03/22 15:16 DC 02/03/22 15:16 50 MCG Propofol 30 mg ONCE ONCE IV 02/03/22 16:00 02/03/22 16:01 DC 02/03/22 15:43 30 MG Propofol 100 mg ONCE ONCE IV 02/03/22 15:15 02/03/22 15:16 DC 02/03/22 15:41 30 MG Sodium Chloride 1,000 ml @ [facility]-MED ONCE .ROUTE 02/03/22 15:37 02/03/22 15:40 DC 02/03/22 15:38 999 MLS/HR Vital Signs/I&O 02/03/22 02/03/22 02/03/22 02/03/22 15:06 15:16 15:37 15:39 Temp 36.4 36.4 Pulse 85 65 Resp 22 14 B/P (MAP) 110/68 (82) 100/69 (79) Pulse Ox 93 97 O2 Delivery Nasal Cannula Nasal Cannula O2 Flow Rate 2.00 2.00 02/03/22 02/03/22 15:43 16:17 Temp 36.4 Pulse 57 Resp 16 B/P (MAP) 117/66 Pulse Ox 96 O2 Delivery Room Air Blood Pressure Mean: 82 Diagnostic Imaging Comments Left forearm: Distal radius fracture with dorsal angulation. Postreduction: Improved alignment, though not perfect. Departure Communication (Admissions) Patient tolerated sedation, reduction well. Reduction shows greatly improved alignment. It was quite difficult to get the distal end of the radius to sit on the proximal portion and so it is still slightly dorsally angulated. She remained neurovascular motor and sensory intact. Splint is in place with no evidence for compartment syndrome. She is discharged home with pain medication, Ortho follow-up and strict return precautions. Impression Primary Impression: Distal radius fracture, left Qualified Codes: S52.502A - Unspecified fracture of the lower end of left radius, initial encounter for closed fracture Disposition: HOME, SELF-CARE Condition: Stable Departure-Patient Inst. Referrals: [facility] [place]) Primary Care Physician MARSHALL CUETO MD Patient Instructions: Radius Fracture (DC) Add. Discharge Instructions: Take the medication as prescribed as needed. This may make you drowsy so do not drive or make important decisions while you are taking it. Follow-up with Dr. Cueto by calling to schedule an appointment. Keep the splint on, clean and dry until you see them. Return to the emergency department for any severe concerns. Follow-up with your primary doctor for any nonemergent needs. All discharge instructions reviewed with patient and/or family. Voiced understanding. Scripts Hydrocodone Bit/Acetaminophen (HYDROcodone/APAP 5 MG/325 MG TAB) 1 Tab Tab 1 TAB PO Q6H for Pain for 3 Days, #12 TAB Prov: GLOANABELLEJacquelyn Hawkins DO 02/03/22 GLOAGAPITO L DO Feb 03, 2022 15:13
[2022-02-03] MEDS ORDERED: proPOfol 200 MG/20 ML (DIPRIVAN) VIAL IV ONE ×2 (15:15→16:00)
[2022-02-03] MEDS ORDERED: fentaNYL INJ 100 MCG/2 ML AMP IVP ONE (15:15)
--- NOTE | 2022-02-03 15:32 | Diagnostic Imaging Report ---
INDICATION: Fracture. FINDINGS: There is a comminuted intra-articular fracture of the distal radius. There is dorsal angulation of the distal fracture fragment. There also appears to be a small ulnar styloid fracture. No other fracture or dislocation. IMPRESSION: Fractures of the distal left radius and ulna, as described. Dictated by: Dictated on workstation # [id number]
[2022-02-03] MEDS ORDERED: NS IV 1000 ML 1,000 ML ONE (15:37)
[2022-02-03] MEDS ORDERED: ACHD5005 PO (15:56)
--- NOTE | 2022-02-03 16:10 | Diagnostic Imaging Report ---
EXAMINATION: Left forearm radiographs. EXAM DATE: 02/03/2022 4:03 PM COMPARISON: None available. HISTORY: Post reduction. TECHNIQUE: 2 views. FINDINGS: There has been interval casting of the left wrist. There is mildly improved angulation of the distal left radius fracture. There continues to be mild dorsal angulation and mild displacement. The joint spaces are normal. Limited evaluation of the soft tissues secondary to overlying casting material. IMPRESSION: Mildly improved angulation of the acute displaced fracture of the distal left radius. Dictated by: Dictated on workstation # [id number]
[2022-02-03 16:17] VITALS: BP 117/66
== END 2022-02-03 16:18 | disposition home or self-care (01) ==
LOC: EDUNIT# 15:02 → ER 15:04
DX: S52.502A Unspecified fracture of the lower end of left radius, initial encounter for closed fracture (principal); Z28.310 Unvaccinated for COVID-19; V00.121A Fall from non-in-line roller-skates, initial encounter; Y93.51 Activity, roller skating (inline) and skateboarding
CPT/HCPCS: 25605; 29105; 73090; 93041

== ENCOUNTER 2022-02-03 22:02 | Emergency (ER) | payer BC ==
[~2022-02-03 22:02] MED LIST changes: +ACHD5005 PO
[2022-02-03 22:10] VITALS: BP 115/76
[2022-02-03] MEDS ORDERED: oxyCODONE/APAP 5/325MG (PERCOCET 5) TABLET PO ONE (22:45)
== END 2022-02-03 23:58 | disposition left against medical advice (07) ==
LOC: EDUNIT# 22:02 → ER 22:05
DX: M79.602 Pain in left arm (principal); V00.121A Fall from non-in-line roller-skates, initial encounter; Y93.51 Activity, roller skating (inline) and skateboarding; Z28.310 Unvaccinated for COVID-19
CPT/HCPCS: 99283

== ENCOUNTER 2022-02-06 11:45 | Outpatient (CLI) | payer BC ==
[~2022-02-06] VITALS: Ht 165.1 cm; Wt 64.3 kg
[2022-02-06] MEDS ORDERED: IBUP-1780 PO (13:43)
[2022-02-06] MEDS ORDERED: ACHD5005 PO (13:43)
== END 2022-02-06 14:02 | disposition home or self-care (01) ==
LOC: PREOP 11:45
PROVIDERS: ATTEND Orthopaedic Surgery
DX: Z01.818 Encounter for other preprocedural examination (principal)

== ENCOUNTER → 2022-02-06 | Outpatient (CLI) | payer BC | LOC: ORTHO 09:21 | PROVIDERS: ATTEND Orthopaedic Surgery | DX: S52.532A Colles' fracture of left radius, initial encounter for closed fracture (principal); X58.XXXA Exposure to other specified factors, initial encounter | CPT/HCPCS: 99203 ==

== ENCOUNTER 2022-02-08 10:33 | Day surgery (SDC) | payer BC ==
[~2022-02-08] VITALS: Ht 165.1 cm; Wt 64.3 kg
[2022-02-08] VITALS (10 sets, daily range): BP systolic 108–137; BP diastolic 59–108
[2022-02-08] MEDS ORDERED: BUPIVACAINE 0.25% 30 ML (SENSORCAINE) VIAL ONE (11:10)
--- NOTE | 2022-02-08 11:17 | Progress Note-Pre Operative ---
Pre-Operative Progress Note Date of Available H&P: Feb 06, 2022 Date H&P Reviewed: Feb 08, 2022 Time H&P Reviewed: 11:00 History & Physical: H&P Reviewed, Patient Examed, No changes noted Pre-Operative Diagnosis: Left Distal Radius Fracture MARSHALL CUETO MD Feb 08, 2022 11:17
[2022-02-08] MEDS ORDERED: fentaNYL INJ 100 MCG/2 ML AMP ONE ×2 (11:19→12:20)
[2022-02-08] MEDS ORDERED: LIDOCAINE PF 2% 5 ML (XYLOCAINE) VIAL ONE (11:19)
[2022-02-08] MEDS ORDERED: MIDAZOLAM 2 MG/2 ML (VERSED) VIAL ONE (11:19)
[2022-02-08] MEDS ORDERED: ONDANSETRON 4 MG/2 ML (SDV) Z0FRAN ONE (11:19)
[2022-02-08] MEDS ORDERED: proPOfol 200 MG/20 ML (DIPRIVAN) VIAL IV ONE (11:19)
[2022-02-08] MEDS ORDERED: ceFAZolin INJECTION 1,000 MG ONE (11:25)
[2022-02-08] MEDS ORDERED: NS (IVPB) 50 ML ONE (11:25)
[2022-02-08] MEDS ORDERED: LACTATED RINGERS 1,000 ML IV PRN (11:30)
[2022-02-08] MEDS ORDERED: ceFAZolin INJECTION 1,000 MG in NS (IVPB) 50 ML IV ONE (11:30)
[2022-02-08] MEDS ORDERED: SEVOFLURANE (ULTANE) 15 ML INHAL SOLN ONE (12:55)
[2022-02-08] MEDS ORDERED: morphine INJ 10 MG/ML 1ML (SYR OR VIAL) IVP ONE (13:15)
--- NOTE | 2022-02-08 13:15 | Operative Report - Ortho ---
Operative Report Surgeon (s)/Drilling Plant Operator (s) Surgeon MARSHALL CUETO MD Drilling Plant Operator n/a Pre-Operative Diagnosis Left Intraarticular Distal Radius Fracture Post-Operative Diagnosis same Operative Report Date of Procedure: Feb 08, 2022 Name of Procedure Performed: Open Reduction and Internal Fixation of Left Distal Radius Fracture Description & Findings After obtaining informed consent, the patient was taken to the operating room. General anesthesia was induced. Surgical timeout was taken. The left upper extremity was prepped and draped in the usual sterile fashion. Incision was made over the volar side of the wrist. Radial artery was identified and protected. Fascia was divided, retractors were placed, and the pronator was reflected. Fracture site was exposed. Fracture site was mobilized. Reduction maneuver was performed using traction, wrist flexion, and ulnar deviation. A [employer] distal radius plate was selected and position against the bone using C- arm. A nonlocking screw was placed in the slot of the plate. A nonlocking screw was then placed in the most distal row of the plate. Plate position and reduction were confirmed in the AP and lateral planes. An ulnar sided locking screw was placed in the distal row followed by the ulnar sided locking screw in the 2nd row. C-arm was once again utilized and noted to have good position of hardware with maintained reduction of fracture. 2 additional locking screws were placed in the distal segment. 2 locking screws were then placed in the radial styloid position. Nonlocking screw distally was switched for a locking screw. 2 locking screws were placed in the diaphyseal portion of the plate. Images were obtained in the AP, and lateral and demonstrated adequate reduction of the fracture with reduction of the intrarticular segment, and appropriate position of the hardware. Final images were saved on the hard drive of the C- arm. Wound was irrigated with normal saline. Subcutaneous layer was closed with 3-0 vicryl. Skin was closed with 4-0 V-loc. Wound was injected locally with marcaine. Arm was dressed with steri-strips, xeroform, 4x4s, webril, volar splint, and SHAYY wrap. Patient tolerated the procedure well and was stable to the recovery room. Anesthesia Type general Estimated Blood Loss minimal Specimen(s) collected/removed None MARSHALL CUETO MD Feb 08, 2022 13:15
--- NOTE | 2022-02-08 14:09 | Diagnostic Imaging Report ---
INDICATION: Wrist fracture, undergoing ORIF. 2 intraprocedural images wrist Fluoroscopy Time: 39.4 seconds FINDINGS: The hospital radiology department provided fluoroscopic imaging in support of an interventional procedure. No radiologist involvement and/or interpretation. Please reference the operating provider's procedure note. IMPRESSION: Intraprocedural technical imaging provided. Dictated by: Dictated on workstation # [id number]
--- NOTE | 2022-02-08 14:44 | Anesthesia-General Post-Op ---
General Patient Condition Mental Status/LOC: Same as Preop Cardiovascular: Satisfactory Nausea/Vomiting: Absent Respiratory: Satisfactory Pain: Controlled Complications: Absent Post Op Complications Complications None Follow Up Care/Instructions Patient Instructions None needed. Anesthesia/Patient Condition Patient Condition Patient is doing well, no complaints, stable vital signs, no apparent adverse anesthesia problems. No complications reported per nursing. MARSHALL NEWTON CRNA Feb 08, 2022 14:44
== END 2022-02-08 14:45 | disposition home or self-care (01) ==
LOC: SDC 10:33
PROVIDERS: ATTEND Orthopaedic Surgery
DX: S52.532A Colles' fracture of left radius, initial encounter for closed fracture (principal); Z28.310 Unvaccinated for COVID-19; F17.290 Nicotine dependence, other tobacco product, uncomplicated; W18.39XA Other fall on same level, initial encounter; Y93.51 Activity, roller skating (inline) and skateboarding
CPT/HCPCS: 25608; 76000; 84703; 87081; C1713 ×8

== ENCOUNTER → 2022-02-20 | Outpatient (CLI) | payer BC | LOC: ORTHO 09:30 | PROVIDERS: ATTEND Orthopaedic Surgery | DX: Z47.89 Encounter for other orthopedic aftercare (principal) ==

== ENCOUNTER → 2022-03-13 | Outpatient (CLI) | payer BC ==
--- NOTE | 2022-03-13 11:12 | Diagnostic Imaging Report ---
INDICATION: Follow-up orthopedic assessment. FINDINGS: AP, oblique and lateral views of left wrist are obtained. Since 02/03/2022, there has been placement of volar fixation plate across the distal radial fracture with near-anatomic alignment. There is no significant articular offset. Dystrophic calcification is seen adjacent to the ulnar styloid process likely related to avulsion fracture fragment. IMPRESSION: Near-anatomic alignment post internal fixation of distal radial fracture. Dictated by: Dictated on workstation # [id number]
== END ==
LOC: ORTHO 09:57
PROVIDERS: ATTEND Orthopaedic Surgery
DX: Z09 Encounter for follow-up examination after completed treatment for conditions other than malignant neoplasm (principal); Z98.890 Other specified postprocedural states
CPT/HCPCS: 73110

== ENCOUNTER 2022-03-21 08:31 | Outpatient (RCR) | payer BC | END 2022-03-23 | PROVIDERS: ATTEND Orthopaedic Surgery | DX: Z09 Encounter for follow-up examination after completed treatment for conditions other than malignant neoplasm (principal) ==

== ENCOUNTER 2022-04-02 15:24 | Outpatient (RCR) | payer BC | END 2022-04-23 | disposition home or self-care (01) | PROVIDERS: ATTEND Orthopaedic Surgery | DX: Z09 Encounter for follow-up examination after completed treatment for conditions other than malignant neoplasm (principal) ==

== ENCOUNTER → 2022-04-23 | Outpatient (CLI) | payer BC ==
--- NOTE | 2022-04-23 18:07 | Diagnostic Imaging Report ---
INDICATION: Follow-up left wrist injury. AP, oblique, and lateral views of the left wrist are obtained and compared to 03/13/2022. FINDINGS: Hardware remains in place across the distal radial fracture with anatomic alignment. There is persistent lucency at the fracture site. Ulnar styloid avulsion is noted. IMPRESSION: Stable alignment of distal radial healing fracture with unchanged hardware in place. Ulnar styloid avulsion again noted. Dictated by: Dictated on workstation # [id number]
== END ==
LOC: ORTHO 15:00
PROVIDERS: ATTEND Orthopaedic Surgery
DX: Z47.89 Encounter for other orthopedic aftercare (principal); S52.502D Unspecified fracture of the lower end of left radius, subsequent encounter for closed fracture with routine healing; X58.XXXD Exposure to other specified factors, subsequent encounter
CPT/HCPCS: 73110

== ENCOUNTER → 2022-08-02 | Outpatient (CLI) | payer BC ==
--- NOTE | 2022-08-07 11:03 | Diagnostic Imaging Report ---
INDICATION: Screening. EXAMINATION: Bilateral 3D screening mammograms. COMPARISON: 02/16/2021 and 11/10/2019. FINDINGS: There is high breast parenchymal density. A biopsy marker is noted in the upper outer quadrant of the right breast. There are benign calcifications in the breasts. No new dominant mass or suspicious calcification is seen in either breast. IMPRESSION: Category 2, benign findings. Continued physical examination and annual mammographic followup are recommended. ACR BI-RADS Category 2: Benign findings. Result letter will be mailed to the patient. Note: At least 10% of breast cancer is not imaged by mammography. Dictated by: Dictated on workstation # [id number]
== END ==
LOC: RAD 14:33
PROVIDERS: ATTEND Nurse Practitioner Family
DX: Z12.31 Encounter for screening mammogram for malignant neoplasm of breast (principal)
CPT/HCPCS: 77063; 77067